=== PATIENT | female | born 1940 | race Caucasian/White ===

== ENCOUNTER 2016-05-16 09:12 | Inpatient (IN) | payer MEDICARE ==
--- NOTE | 2016-04-30 14:30 | NUR ---
JOINT CAMP: Patient attended Joint Camp at [facility] and patient is planning to come in for a procedure on 05/16/16. Patient has four stairs into the home and two stairs inside the home. Patient's DPOA Lilly Bocanegra [phone] and this is patient's daughter. She will be caring for patient post discharge and she will also be transporting. Patient has never been involved in Home Health services, SNF or outpatient physical therapy. At home patient has bath bench and walker, patient will need elevated toilet seat and bedside commode.
[2016-05-16] VITALS (15 sets, daily range): BP systolic 102–171; BP diastolic 64–95; PULSE 69–82; RESP 12–22; O2SAT 93–100
[~2016-05-16] VITALS: Ht 167.6 cm; Wt 66.8 kg
[2016-05-16] MEDS: Lactated Ringer's 1,000 ML IV SCH ×4 (05:00→17:05)
[~2016-05-16 09:12] MED LIST: Bupivacaine Liposome 1.3% 20 mL Inj INFILTRATE ONE; CYCL10TA9 PO; Clindamycin 900 mg/50 mL D5W IV ONE; DICL75TA6 PO; GABA-502 PO; HYDR-4003 PO; IBUP400T22 PO; MAGN400C PO; MULT-1018 PO; Vancomycin Inj 1,000 MG in IV Premix 1 EACH IV ONE
[2016-05-16] MEDS ORDERED: Lactated Ringer's 500 ML IV PRN (12:04)
[2016-05-16] MEDS ORDERED: Lactated Ringer's 1,000 ML IV SCH (12:04)
[2016-05-16] MEDS ORDERED: Ondansetron 2 mg/mL 2 mL Inj IVPUSH PRN (12:05)
[2016-05-16] MEDS ORDERED: Labetalol 5 mg/mL 4 mL Inj IV PRN (12:05)
[2016-05-16] MEDS ORDERED: EPHEDrine Sulfate 50 mg/mL Inj IVPUSH PRN (12:05)
[2016-05-16] MEDS ORDERED: Phenylephrine 10,000 mCg/mL Inj IVPUSH PRN (12:05)
[2016-05-16] MEDS ORDERED: Dexamethasone 4 mg/mL Inj IVPUSH PRN (12:05)
[2016-05-16] MEDS ORDERED: hydrALAZINE 20 mg/mL Inj IVPUSH PRN (12:05)
[2016-05-16] MEDS ORDERED: Atropine 0.4 mg/mL Inj IVPUSH PRN (12:05)
[2016-05-16] MEDS ORDERED: MetoCLOpramide 5 mg/mL 2 mL Inj IVPUSH PRN (12:05)
--- NOTE | 2016-05-16 12:16 | PCM.HPANE ---
Patient Data Date of Service: May 16, 2016 Surgeon Admitting Provider: Attending Provider:Luis Santoro MD Primary Care Physician:Eula Alva MD Other Provider:Reji Brush Anesthesia Reason for Visit Left Hip Arthritis Ht/WT & BMI Height (Feet): 5 Height (Inches): 6 Weight (Kilograms): 66.8 Body Mass Index 23.00 Allergies Coded Allergies: Penicillins (Verified Allergy, Severe, RASH, 05/15/16) Past Anesthesia History Anesthesia History: Denies:: Fam Anesthesia Reaction, Fam Malignant Hypertherm Diabetes History Hx Diabetes?: No MRSA MRSA: No Medications Hypertension Medication: No Home Meds Incl Beta Elsie: No Reported Medications Multivitamin (Multi Vitamin Daily)1 Each Tablet1 Each PO DAILY 30 Days Ref 0 05/15/16 Magnesium Oxide (Magnesium)400 Mg [id number] Mg PO DAILY 05/15/16 Ibuprofen 400 Mg [id number] Mg PO QID PRN For Pain Ref 0 05/15/16 Hydrocodone-Acetaminophen 5-325 mg 1 Each Tablet1 Tablet PO Q6H PRN For Pain Ref 0 05/15/16 Diclofenac ER 75 Mg Onflme01 Mg PO DAILY 05/15/16 Discontinued Reported Medications Gabapentin 300 Mg [id number] Mg PO HS Ref 0 05/15/16 Cyclobenzaprine 10 Mg [id number] Mg PO TID PRN Spasm 05/15/16 History History of ENT Problems?: No Hx of Heart Problems?: No Cardiovascular History: Denies:: Heart Murmur Hypertension Valvular Heart Disease Hx of Respiratory Problem?: No Respiratory History: Denies:: Use of C-PAP Machine Hx Neurologic Problems?: Yes Neurological History: Positive for:: Dizziness (HX OF BPPV-PARTIALLY RESOLVED W/ PT) Hx of GI Problems?: Yes Gastrointestinal History: Denies:: Diverticulitis (DIVERTICULOSIS) Hx of Problems?: No Female Hx: Denies:: Currently Skin History: Denies:: History Skin Disorders? Pressure Ulcers Hx Musculoskeletal Problems?: Yes Musculoskeletal History: Positive for:: Degenerative Joint Musculoskeletal Trauma (LT HIP=CURRENT PROBLEM) Hx of Psycho/Social Problems?: No Hx Surgeries?: No Hx Any Other Health Problems?: No Other History: Denies:: Cancer Endocrine Disease Hospitalization Thyroid Disease History Blood Transfusions: Denies:: Blood Transfusions Hx Diabetes: No Hx Alcohol Use: Yes (occassional)Hx Substance Use: NoHave You Smoked inLast 12 mo: No Stop/Bang S-Snoring: Do You Snore Loudly: No T-Tired: feel tired, fatigued: No O-Obsered: Observed not breath: No P-Blood Pressure: treated: No B- Body Mass Index > 35 kg/m2: No A- Age over 50: Yes N- Neck Large Circumference: No G- Gender Male: No ROSEMARY Total Score: 1 ROSEMARY Risk Assessment: Low Risk, <3 Yes Risk Assessment Category Category 1A: Patient has history of documented sleep apnea, and HAS NOT received any narcotic, sedative or anesthesia administration during this stay. Category 1B: Patient has history of documented sleep apnea, and HAS received any narcotic , sedative or anesthesia administration during this stay Category 2: Patient has SUSPECTED Obstructive Sleep Apnea, and HAS received any narcotic , sedative or anesthesia administration during this stay. Category 3: Patient has SUSPECTED Obstructive Sleep Apnea and HAS NOT received narcotic, sedative or anesthesia administration during this stay. Category 4: Outpatient in Procedural Areas with known sleep apnea or who screen positive for High Risk via the STOP/BANG questionnaire. Exam Exam Vital Signs Vital Signs Date Time Temp Pulse Resp B/P Pulse Ox O2 Delivery O2 Flow Rate FiO2 05/16/16 09:35 36.5 69 16 102/64 93 Room Air General Appearance: Alert, Oriented X3, Cooperative HEENT/AIRWAY: MP 2, Neck Movement (Full), Mouth Opening (Wide) Lungs: Clear to Auscultation, Normal Air Movement Heart: Regular Rate/Rhythm, Normal S1, Normal S2 Meds/Labs/Diagnostics Admission Meds Current Medications Lactated Ringer's 1,000 ml @ 120 mls/hr Q8H20M IV Last administered on 10:03; Start 05/16/16 at 05:00; Stop 05/16/16 at 13:19 Vancomycin/0.9 % Sod Chloride/ Premix (Vancomycin Inj/ IV Premix) 200 ml @ 133.333 mls/hr PREOP ONCE IV Last administered on 05/16/16 10:03; Start at 06:00; Stop 05/16/16 at 07:29; Status DC Plan Impression Patient chart reviewed, patient interviewed and anesthestic plan with risks, benefits, and alternatives discussed, and informed consent obtained. NPO Status: > midnight ASA Physical Status: ASA2 Mod Systemic Disease Anesthetic Plan: GA, SAB Bene/Risks/Altern/Consents: Yes HP Complete Prior to Induction: Yes Other risk vs benefit of SAB vs. GA discussed. Patient with extensive spinal surgeries for scoliosis, with 5 level lumbar fusion and previous márquez rods (since removed). 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 Given this history, we discussed proceeding with general anesthesia. Jace Garcia MD May 16, 2016 10:36
[2016-05-16] MEDS ORDERED: Bupivacaine Liposome 1.3% 20 mL Inj ONE (12:56)
[2016-05-16] MEDS ORDERED: Gentamicin 40 mg/mL 2 mL Inj IRRIGATION ONE (13:50)
[2016-05-16] MEDS ORDERED: Bupivacaine-MPF 0.5% W/EPI 30 mL Inj INFILTRATE ONE (13:50)
[2016-05-16] MEDS: HYDROmorphone 1 mg/mL Inj IVPUSH PRN ×3 (14:13→15:59)
[2016-05-16] MEDS ORDERED: Alum-Mag Hydrox-Simeth 30 mL Suspension PO PRN ×2 (15:25→17:05)
[2016-05-16] MEDS ORDERED: Polyethylene Glycol (PEG) 17 Gm Powder PO PRN (15:25)
--- NOTE | 2016-05-16 15:25 | PCM.ANEP1 ---
Post Anesthesia Phase 1 PACU Phase 1 Assessment Date of Service: May 16, 2016 Vital Signs Vital Signs Date Time Temp Pulse Resp B/P Pulse Ox O2 Delivery O2 Flow Rate FiO2 05/16/16 15:20 79 22 163/84 99 Simple Mask 8 05/16/16 15:15 81 12 164/85 100 Simple Mask 8 05/16/16 15:12 36.1 82 17 161/84 100 Simple Mask 8 05/16/16 09:35 36.5 69 16 102/64 93 Room Air Anesthetic Administered: GA Level of Alertness: Awake, talking BHATIA's with Equal Strength: Yes Pain: Yes Pain Scale Score: 5 Nausea or Vomiting: No Oxygen Delivery: Simple Mask Lungs: Normal Air Movement Summary Three episodes of self-limiting tachycardia, irregular, suggestive of intermittent a.fib. HR up to 140s. In PACU back to NSR. Hospitalist consulting, to be placed on telemetry. Jace Garcia MD May 16, 2016 15:25
[2016-05-16 15:32] LABS: APPEARANCE,URINE HAZY (CLEAR,HAZY); COLOR,URINE YELLOW (YELLOW); OCCULT BLOOD,URINE NEGATIVE (NEGATIVE); PH,URINE 5.5 (5.0-8.0); UROBILINOGEN,URINE NORMAL (NORMAL)
[2016-05-16] MEDS: fentaNYL-PF 50 mCg/mL 2 mL Inj IVPUSH PRN ×2 (15:37→15:49)
--- NOTE | 2016-05-16 15:42 | PCM.ANEP2 ---
Post Anesthesia Evaluation ASA/CMS Post Anesthesia Date of Service: May 16, 2016 VS in Patient's Normal Range?: Yes Resp Stable; Airway Patent?: Yes CV Function & Hydration Stable: Yes Mental Status Recovered?: Yes Pain control Satisfactory?: Yes N/V Control Satisfactory?: Yes Additional Comments In NSR. EKG NSR. Hospitalist consulting for rapid tachycardia Jace Garcia MD May 16, 2016 15:42
--- NOTE | 2016-05-16 15:52 | OP ---
[address] [address] OPERATIVE REPORT PATIENT: MAGO HUGGINS : 1940 MR#: [id number] ADMIT: 05/16/2016 JOB ID: [id number] DATE OF SURGERY: 05/16/2016 PREOPERATIVE DIAGNOSIS(ES): Severe arthritis, left hip. POSTOPERATIVE DIAGNOSIS(ES): Severe arthritis, left hip. PROCEDURE: Left total hip arthroplasty. SURGEON: Luis Santoro MD. SALES AND SERVICE ASSOCIATE: Carol Johnson PA-C. Slitter And Rewinder required due to the major complexity of the operation. INDICATIONS: This woman has had severe progressive osteoarthritic changes associated with her hip. Symptoms are uncontrolled by conservative treatment. She elects to proceed with a total hip replacement. She understands and accepts the potential for risks and complications, which include, but are not limited to, infection, thromboembolic or neurovascular events, as well as potential for implant failure. DESCRIPTION OF PROCEDURE: The patient was prepped and draped in the usual sterile fashion. A posterolateral approach was made. Dissection was carried down. The femoral hip external rotators were released. Capsule was T-tagged and released. The hip was dislocated. A standard femoral neck cut was made. The acetabulum was progressively reamed to a 53 size. A 54 outer bearing cup was placed. A trial liner was placed. A box osteotome was utilized on the femur, followed by a standard straight reamer. She had very thick cortical bone, and broaching was initiated with a 4 broach. It required further reaming to get in a 5 broach. The 5 broach was set to appropriate position but in order not to lengthen her it required the use of a -3 neck length. Excellent stability, however, and appropriate leg length were obtained with this. Wounds were irrigated with sterile irrigant. Final implant was applied. Repeat trial reductions confirmed similar positions as the trials. External rotators were repaired to the bone. Deep fascia was closed with #2 Quill, followed by 2-0 Vicryl, 3-0, and a 4-0 intracuticular stitch. Patient tolerated the procedure well. There were no complications.
--- NOTE | 2016-05-16 16:06 | DRSVH ---
PROCEDURE: X-RAY PELVIS ONE OR TWO VIEWS ([id number]) INDICATIONS: check alignment TECHNIQUE: 1 view of the lower pelvis acquired. COMPARISON: None. FINDINGS: Bones: Patient is status post left hip arthroplasty, with hardware components in expected positions. The hip joint appears congruent. The visualized bony structures appear intact. Mild right hip eric nt degeneration. Soft tissues: Overlying postoperative changes are noted. No suspicious soft tissue densities. IMPRESSION: Expected appearance and alignment status post left thoracoplasty. Dictated by: Marty MORAELS Interpreted: Anrdes Vázquez MD on 05/16/2016 at 16:05 Transcribed by: CHARLOTTE on 05/16/2016 at 16:06 Approved by: Andres Vázquez M.D. on 05/17/2016 at 13:26
[2016-05-16] MEDS ORDERED: hydrOXYzine Pamoate 25 mg Capsule ONE (16:08)
[2016-05-16] MEDS ORDERED: oxyCODONE-Acetamin 5-325 mg Tablet PO ONE (16:08)
[2016-05-16 16:12] LABS: BASOPHILS % (AUTO) 0.3 % (0-3); EOSINOPHILS % (AUTO) 1.4 % (0-5); MONOCYTES % (AUTO) 4.2 % (4-12); Mean Corpuscular Hemoglobin 33.2 pg (27.0-35.0); Mean Corpuscular Volume 98.4 fL (81-100); NEUTROPHILS % (AUTO) 78.7 % (40-74); Platelet Count 260 bil/L (150-400)
--- NOTE | 2016-05-16 16:16 | DRSVH ---
PROCEDURE: X-RAY CHEST ONE VIEW, PORTABLE ([id number]) INDICATIONS: Afib TECHNIQUE: One view of the chest was acquired. COMPARISON: [facility], CT, CT ABDOMEN PELVIS W CONTRAST, 04/29/2016, 10:41 AM. FINDINGS: Surgical changes and devices: Tendon anchors the interval the right shoulder. Lungs and pleura: No pleural effusions or pneumothorax. Lungs are clear. Hiatal hernia present. Mediastinum: Mediastinal contours appear normal. Heart size is normal. Bones and chest wall: No suspicious bony lesions. Overlying soft tissues appear unremarkable. S-sh aped scoliosis. IMPRESSION: No acute cardiopulmonary disease. Dictated by: Marty TOBAR Interpreted: Andres Vázquez MD on 05/16/2016 at 16:15 Transcribed by: CHARLOTTE on 05/16/2016 at 16:15 Approved by: Andres Vázquez M.D. on 05/17/2016 at 13:44
[2016-05-16 16:44] LABS: TROPONIN T < 0.010 ug/L (0.0-0.011)
[2016-05-16] MEDS ORDERED: Phenylephrine/NS-PF 100 mCg/mL 5 mL Syringe IVPUSH ONE (16:44)
[2016-05-16] MEDS ORDERED: fentaNYL-PF 50 mCg/mL 2 mL Inj ONE (16:44)
[2016-05-16] MEDS ORDERED: Propofol 10,000 mCg/mL 20 mL Inj ONE (16:44)
[2016-05-16] MEDS ORDERED: Dexamethasone 4 mg/mL Inj ONE (16:44)
[2016-05-16] MEDS ORDERED: Succinylcholine Chloride 20 mg/mL 5 mL Inj ONE (16:44)
[2016-05-16] MEDS ORDERED: Ondansetron 2 mg/mL 2 mL Inj ONE (16:44)
[2016-05-16] MEDS ORDERED: Lidocaine PF 1% 30 mL Inj ONE (16:44)
[2016-05-16] MEDS ORDERED: HYDROmorphone 2 mg/mL Inj ONE (16:44)
[2016-05-16] MEDS ORDERED: Magnesium Hydroxide 10 mL Oral Concentration PO PRN (17:05)
[2016-05-16] MEDS ORDERED: diphenhydrAMINE 25 mg Capsule PO PRN (17:05)
[2016-05-16] MEDS ORDERED: Ondansetron 2 mg/mL 2 mL Inj IV PRN (17:05)
[2016-05-16] MEDS ORDERED: Sodium Biphos-Phos 133 mL Enema RECTAL PRN (17:05)
[2016-05-16] MEDS ORDERED: Senna-Docusate 8.6-50 mg Tablet PO PRN (17:05)
[2016-05-16] MEDS ORDERED: Ondansetron 8 mg ODT Tablet PO PRN (17:05)
[2016-05-16] MEDS ORDERED: MetoCLOpramide 5 mg/mL 2 mL Inj IV PRN (17:05)
[2016-05-16] MEDS: hydrOXYzine Pamoate 25 mg Capsule PO PRN ×2 (17:18→21:41)
--- NOTE | 2016-05-16 17:36 | PCM.CHPMED ---
Subjective Date of Service: May 16, 2016 Provider requesting consult: Luis Santoro MD Primary Physician: Admitting Physician: Luis Santoro MD Primary Care Physician: Eula Alva MD Attending Physician: Luis Santoro MD Admit Status: Direct Admit Chief Complaint: Chief Complaint: Medicine consulted for an episode of intraoperative atrial fibrillation and postop follow-up History of Present Illness: Krysten is a pleasant 75-year-old lady with no significant past medical history except history of BPPV, hip osteoarthritis, history of scoliosis who was admitted for elective left hip replacement. Intraoperatively she had 2 episodes of atrial fibrillation with RVR rate 130s which lasted for about a minute each time. Procedure was otherwise uneventful. No significant blood loss. Patient denies any history of arrhythmia. Denies chest pain. Denies palpitation. Complains of pain at surgical site. Review of Systems: A comprehensive review of systems performed, pertinent positives and negatives included in history of present illness PMH Past Medical History History of BPPV, she was on meclizine when necessary. No recent attack, not currently taking medications History of scoliosis status post spine surgery History of ectopic Hx Any Other Health Problems?: NoHx Diabetes: No Surgical History Appendectomy Laparotomy for ectopic Spine surgery Home Medications Hydrocodone molexicam 1 tablet daily Allergies: Coded Allergies: Penicillins (Verified Allergy, Severe, RASH, 05/15/16) Family History Family History Reviewed and unremarkable Social History Hx Alcohol Use: Yes (occassional)Hx Substance Use: NoHx Tobacco Use: No ( never smoked) Smoking Status: Never Smoker Exam Vital Signs Vital Sign - Last Date Time Temp Pulse Resp B/P Pulse Ox O2 Delivery O2 Flow Rate FiO2 05/16/16 16:40 36.5 77 16 160/74 95 Room Air 05/16/16 15:25 8 General: Alert, Oriented X3, Cooperative, No Acute Distress Head: Normal Eyes: PERRLA Mouth: Mucous Membr Moist/[place] Neck: Supple Chest & Lungs: Clear to auscultation & percussion Cardiovascular: Regular Rate/Rhythm, Normal S1, Normal S2, No Murmurs/Rubs/ Gallops Abdomen: Non-tender, No hepatosplenomegaly Musculoskeletal: Other (left hip surgical site cleanly dressed ) Neurological: Grossly Neurologically Intact Lab and Diagnostics Result Diagram: 05/16/16 1555 05/16/16 1555 12-lead ECG NSR ,no st/t wave changes Additional Diagnostics: DATE OF SURGERY: 05/16/2016 PREOPERATIVE DIAGNOSIS(ES): Severe arthritis, left hip. POSTOPERATIVE DIAGNOSIS(ES): Severe arthritis, left hip. PROCEDURE: Left total hip arthroplasty. SURGEON: Luis Santoro MD. RN MATERNAL CHILD: Carol Johnson PA-C. Line Lead required due to the major complexity of the operation. INDICATIONS: This woman has had severe progressive osteoarthritic changes associated with her hip. Symptoms are uncontrolled by conservative treatment. She elects to proceed with a total hip replacement. She understands and accepts the potential for risks and complications, which include, but are not limited to, infection, thromboembolic or neurovascular events, as well as potential for implant failure. DESCRIPTION OF PROCEDURE: The patient was prepped and draped in the usual sterile fashion. A posterolateral approach was made. Dissection was carried down. The femoral hip external rotators were released. Capsule was T-tagged and released. The hip was dislocated. A standard femoral neck cut was made. The acetabulum was progressively reamed to a 53 size. A 54 outer bearing cup was placed. A trial liner was placed. A box osteotome was utilized on the femur, followed by a standard straight reamer. She had very thick cortical bone, and broaching was initiated with a 4 broach. It required further reaming to get in a 5 broach. The 5 broach was set to appropriate position but in order not to lengthen her it required the use of a -3 neck length. Excellent stability, however, and appropriate leg length were obtained with this. Wounds were irrigated with sterile irrigant. Final implant was applied. Repeat trial reductions confirmed similar positions as the trials. External rotators were repaired to the bone. Deep fascia was closed with #2 Quill, followed by 2-0 Vicryl, 3-0, and a 4-0 intracuticular stitch. Patient tolerated the procedure well. There were no complications. Luis Santoro MD 05/16/16 1530 Assessment & Plan Assessment Krysten is a pleasant 75-year-old lady with no significant past medical history except history of BPPV, hip osteoarthritis, history of scoliosis who was admitted for elective left hip replacement # Brief episodes of Afib ,acute,not present on admission,resolved -likely due to anaesthetic meds -troponin negative,electrolytes ok,TSH mildly elevated with normal FT4 -monitor telemetry overnight -she will be on anticoagulation for THR for 4 weeks which should suffice .PCP may consider holter monitor if any palpitation outpatient # Hypertension,acute,not poa -Patient denies any history of hypertension - Pain control and will reassess # Status post total hip replacement -Pain control with dilaudid -defer DVT prophylaxis to ortho #Subclinical hypothyroidism,poa -Recheck TFT in 6-8 weeks outpatient Full code,verified with patient Thank you for the consult, will follow along with you. Problems: Resuscitation Status: CPR: Attempt Resuscitation copies to: Eula Alva MD; Luis Santoro MD, Melaku MD May 16, 2016 17:36
[2016-05-16] MEDS: 0.9% Sodium Chloride 1,000 ML IV SCH (17:50)
--- NOTE | 2016-05-16 19:45 | NUR ---
Admit Pt admitted to unit at 1630 on bed from PACU. Pt having pain /. Medications given. PATIENT PARTNER and telemetry applied. Pt desating to mid 80's, so 2L NC put on. LR infusing in surgical tubing. IV intact and patent. Island dressing in place with ice. Foot is cool, but strong pedal pulse, good cap refill, pt can wiggle toes and denies any numbness, tingling, or burning. Pt having nausea, medications given and lights turned down. Nicole intact and draining pale urine. VSS, A&O x3, BHATIA.
[2016-05-16] MEDS: CeFAZolin Inj 2 GM in IV Premix 1 EACH IV SCH (20:59)
[2016-05-16] MEDS ORDERED: CALC-140 PO (21:12)
--- NOTE | 2016-05-16 21:25 | NUR ---
Admit nurse note Admission assessment completed. pt. c/o 3/10 L hip pain and slight nausea. Primary RN notified and states she will give pain meds. Pt. oriented to room, call martinez and fall precautions. Daughter to bring in advance directives. Med rec updated per pt. recall. Allergies verified and sticker placed on name band. Pt. states her 2 months ago so she has had some stress, but that she has a good support network with 2 sons close by and a daughter who is visiting. Report given to Jackie Sanches.
[2016-05-16] MEDS: oxyCODONE-Acetamin 5-325 mg Tablet PO PRN (21:43)
[2016-05-16] MEDS ORDERED: Vancomycin 1 Gm/200 mL NS Premix IV ONE (22:00)
[2016-05-16] MEDS: Sodium Chloride LOK Flush 10 mL Syringe IV SCH (23:32)
[2016-05-17 00:42] VITALS: BP 94/58; PULSE 75; RESP 16; O2SAT 97
[2016-05-17] MEDS: HYDROcodone-APAP 5-325 mg Tablet PO PRN ×3 (00:52→09:20)
--- NOTE | 2016-05-17 02:18 | NUR ---
Pain Patient describing pain as tolerable at beginning of shift. Ice pack in place to left hip surgical site. Throughout remainder of shift, thus far, rating pain as a 4/10. States its tolerable, but she knows that it's there. Education provided on pain management techniques and keeping on top of pain rather than playing catch up. Patient agreeable. Receiving Logan 5/325 one tab and Vistaril 25 mg PO with effective results. Currently resting with eyes closed. Addendum: 05/17/16 at 0623 by CLYDE KINSEY RN Patient apprehensive about removing Nicole this AM. Would feel more comfortable waiting until after working with PT and getting OOB first. Will pass info on to day shift RN.
[2016-05-17] MEDS: CeFAZolin Inj 2 GM in IV Premix 1 EACH IV SCH (04:44)
[2016-05-17 05:29] VITALS: BP 115/70; PULSE 70; RESP 16; O2SAT 99
[2016-05-17 05:31] LABS: BASOPHILS % (AUTO) 0.1 % (0-3); EOSINOPHILS % (AUTO) 0 % (0-5); MONOCYTES % (AUTO) 9.8 % (4-12); Mean Corpuscular Hemoglobin 32.7 pg (27.0-35.0); Mean Corpuscular Volume 98.1 fL (81-100); NEUTROPHILS % (AUTO) 80.4 % (40-74); Platelet Count 263 bil/L (150-400)
[2016-05-17] MEDS: hydrOXYzine Pamoate 25 mg Capsule PO PRN ×4 (05:42→22:35)
[2016-05-17 07:50] VITALS: PULSE 74
[2016-05-17] MEDS: Sodium Chloride LOK Flush 10 mL Syringe IV SCH ×3 (08:30→22:38)
--- NOTE | 2016-05-17 08:36 | PCM.PNORTH ---
Subjective Date of Service: May 17, 2016 Visit Information: Reason for Visit Left Hip Arthritis Surgery/Surgery Date L RAJIV 05/16/16 Post-Op Day # Date of Admission: May 16, 2016 at 16:43 Hospital Day # Subjective Found patient awake and alert and sitting up in bed. No complaints pain at this time. Discussed the usual course of her hospital stay and encouraged patient to participate with formal therapy for discharge to home on postop day 2 or 3. Patient does have a daughter who will be staying with her for approximately 2 weeks postop. She does live in a private home and has a total of 6 steps to reach her bedroom. For the house and to within the house to reach her bedroom. She does have a front-wheeled walker in place. Postop General: No Complaints, No Shortness of Breath, No Chest Pain Pain Management: PO Objective Exam Objective Orientation: Alert and oriented 3 and pleasant Dressing: Interoperative dressing is clean dry and intact. Wound: Wound is not observed today. Compartments: Calf and thigh are soft and nontender. Mobility/sensation: and sensation are intact at left lower extremity distally. Abduction wedge: None RANDY hose: None. These will be ordered today. Nicole: In place and working Wound VAC: None Drain: None Gait: No gait as of this time. Vital Signs and I/O Vital Sign - Last Date Time Temp Pulse Resp B/P Pulse Ox O2 Delivery O2 Flow Rate FiO2 05/17/16 05:29 37.0 70 16 115/70 99 Nasal Cannula 2.00 Intake and Output 05/16/16 05/16/16 05/17/16 Cumulative From/Thru 15:00 23:00 07:00 05/15/16 09:27 - 05/17/16 06:21 Intake Total 1470 ml 1346 ml 2816 ml Output Total 100 ml 175 ml 1475 ml 1750 ml Balance 1370 ml -175 ml -129 ml 1066 ml Intake Oral 600 ml 600 ml IV Total 1470 ml 746 ml 2216 ml Output Urine Total 175 ml 1475 ml 1650 ml Estimated Blood Loss 100 ml 100 ml # Bowel Movements 0 0 Lab & Micro Results Laboratory Tests Test 05/16/16 15:27 05/16/16 15:55 05/17/16 05:15 Urine Color Yellow (YELLOW) Urine Appearance Hazy (CLEAR,HAZY) Urine pH 5.5 (5.0-8.0) Urine Specific [place] 1.030 (1.003-1.035) Urine Protein Negativemg/dL (NEG,TRACE) Urine Glucose (UA) Negativemg/dL (NEGATIVE) Urine Ketones 15mg/dL (NEGATIVE) Urine Occult Blood Negative (NEGATIVE) Urine Nitrite Negative (NEGATIVE) Urine Bilirubin Negative (NEGATIVE) Urine Urobilinogen Normalmg/dL (NORMAL) Urine Leukocyte Esterase Negative (NEGATIVE) Urine RBC 0-2/hpf (0-2) Urine WBC 0-5/hpf (0-5) Urine Epithelial Cells Occasional/hpf (NONE-MOD) Urine Crystals None seen (NONE SEEN) Urine Bacteria Moderate/hpf (NONE-FEW) Urine Hyaline Casts None/lpf (NONE) Urine Granular Casts None seen (NONE SEEN) Urine Waxy Casts None seen (NONE SEEN) Urine Red Blood Cell Casts None seen (NONE SEEN) Urine White Blood Cell Casts None seen (NONE SEEN) Urine Mucus Present (None Seen) Urine Trichomonas None seen (NONE SEEN) Urine Yeast None (NONE SEEN) Urinalysis Comment None Urine Culture Reflexed Indicated White Blood Count 7.8th/mm3 (3.8-10.1) 9.5th/mm3 (3.8-10.1) Red Blood Count 3.83mil/mm3 (3.90-5.20) 3.61mil/mm3 (3.90-5.20) Hemoglobin 12.7g/dL (12.0-15.6) 11.8g/dL (12.0-15.6) Hematocrit 37.7% (35.0-46.0) 35.4% (35.0-46.0) Mean Corpuscular Volume 98.4fL (81-100) 98.1fL (81-100) Mean Corpuscular Hemoglobin 33.2pg (27.0-35.0) 32.7pg (27.0-35.0) Mean Corpuscular Hemoglobin Concent 33.7% (32.0-37.0) 33.3% (32.0-37.0) Red Cell Distribution Width 15.0% (12.3-15.4) 14.9% (12.3-15.4) Platelet Count 260bil/L (150-400) 263bil/L (150-400) Neutrophils (%) (Auto) 78.7% (40-74) 80.4% (40-74) Lymphocytes (%) (Auto) 15.1% (14-46) 9.6% (14-46) Monocytes (%) (Auto) 4.2% (4-12) 9.8% (4-12) Eosinophils (%) (Auto) 1.4% (0-5) 0% (0-5) Basophils (%) (Auto) 0.3% (0-3) 0.1% (0-3) Hold Blue Top Tube Received (Received) Sodium Level 140mEq/L (134-144) Potassium Level 4.5mEq/L (3.5-5.2) Chloride Level 100mEq/L (97-108) Carbon Dioxide Level 23mmol/L (18-29) Blood Urea Nitrogen 24mg/dL (8-27) Creatinine 0.68mg/dL (0.57-1.00) Estimat Glomerular Filtration Rate 121mL/min (>59) Glucose Level 131mg/dL (60-99) Calcium Level 8.9mg/dL (8.5-10.1) Magnesium Level 2.0mg/dL (1.6-2.6) Total Bilirubin 0.7mg/dL (0.0-1.2) Aspartate Amino Transf (AST/SGOT) 26U/L (0-50) Alanine Aminotransferase (ALT/SGPT) 17U/L (0-32) Alkaline Phosphatase 95U/L (25-165) Troponin T < 0.010ug/L (0.0-0.011) Pro-B-Type Natriuretic Peptide 164.1pg/mL (0-738) Total Protein 6.9g/dL (6.4-8.4) Albumin 4.1g/dL (3.4-5.0) Thyroid Stimulating Hormone (TSH) 5.450uIU/mL (0.450-4.500) Free Thyroxine 1.70ng/dL (0.82-1.77) Microbiology 05/16/16 Urine Culture, Received Pending Result Diagram: 05/17/16 0515 05/16/16 3449 General Appearance: Alert, Oriented X3, Cooperative, No Acute Distress Extremities: No Compartment Syndrom Noted, Thigh & Calf Soft/Nontender Postop Sensory Motor: Distal Motor Intact, Movement in Toes, Distal Sensation Intact Activity: Activity per PT, Ambulate with PT (weightbearing as tolerated on the left lower extremity with front wheeled walker.) Catheters: Urethral 2 Way Nicole Assessment & Plan Impression Patient is a pleasant and alert 75-year-old female whom has undergone a left total hip arthroplasty on 05/16/2016. She has arranged for help at home postoperatively and has had all her questions and concerns answered and discussed this morning. Her anticipated discharge will be to home on postop day 2 or 3. Problems: Plan Postop day # 1 from left total hip arthroplasty performed on 05/16/[address] Luis Santoro. Weight bearing status: Weightbearing as tolerated on the left lower extremity. Mobility aid: Front-wheeled walker Immobilization: None Precautions: Standard postoperative total hip precautions in place with no hip flexion past 90. No crossing of the legs and no hip active abduction. Physical therapy: Continue formal physical therapy for mobility, gait and safety. Pain control: Continue by mouth pain medication in the form of [place] 5 or Percocet 5 and Vistaril. DVT prophylaxis: Continue Lovenox 40 mg subcutaneous daily 10 days postop with transition to ASA 81 mg EC by mouth twice a day for an additional 4 weeks totaling 6 weeks DVT prophylaxis. Wound care: Keep wound clean and dry and covered until seen in office in 2 weeks. Infectious DZ: None Nicole: In place and working. Nicole will be discontinued today on postop day 1 after her first physical therapy session. Dressing: Interoperative dressing is clean dry and intact. This will be changed to postoperative dressing on postop day 2 Drain: None Abduction wedge: None RANDY hose: None. Bilateral thigh-high RANDY hose will be ordered this morning. Nursing communication: Please measure 4 and fit bilateral thigh-high RANDY hose today. Please discontinue Nicole catheter today after first PT session. 2-week follow-up: Follow-up in 2 weeks at [facility] orthopedic clinic on prearranged appointment with [facility] provider for wound check and suture removal . 6-week follow-up: Follow-up in 6 weeks at [facility] orthopedic clinic on prearranged appointment with Dr. Luis Santoro with AP pelvis and left cross table lateral hip x-ray on arrival Plan: Patient will likely remain in-house for 2-3 days while participating with formal physical therapy with anticipated discharge to home on postop day 2 or 3. Telemetry is anticipated to be discontinued today by hospitalist service if there are no further events of A. fib. Orthopedics thanks hospitalist service for their help in the medical management of this patient. Discharge instructions: Weightbearing as tolerated on the left lower extremity using front wheel walker. Patient may work on gentle hip range of motion. Patient should be up and about and balance rest with activity. Ice incision as needed for pain control and comfort. Patient should not drive while on narcotic pain medication. Anticipated formal physical therapy to begin at 6 weeks postop. Discharge plan: Anticipate discharge to home with daughter as caregiver on postop day 2 or 3. VTE Prophylaxis: Sub-Q Enoxaparin (Lovenox 40 mg subcutaneous daily 10 days postop with transition to ASA 81 mg twice a day 4 weeks postop for total of 6 weeks postoperative DVT prophylaxis.), SCDs (bilateral SCDs.), RANDY Hose ( bilateral thigh-high RANDY hose will be ordered today.) Resuscitation Status: CPR: Attempt Resuscitation Arnold Boyce PA-C May 17, 2016 07:27
[2016-05-17 09:35] VITALS: BP 110/60; PULSE 73; RESP 16; O2SAT 96
[2016-05-17] MEDS: Lactated Ringer's 1,000 ML IV SCH (09:45)
[2016-05-17] MEDS: oxyCODONE-Acetamin 5-325 mg Tablet PO PRN ×5 (10:17→22:35)
[2016-05-17] MEDS: 0.9% Sodium Chloride 1,000 ML IV SCH (11:21)
--- NOTE | 2016-05-17 14:28 | NUR ---
ACTIVITY/PAIN Medicated with 1 tab norco and 1 tab vistaril prior to first therapy session in am. Stated medication was not effective after therapy, stating pain was an 8/10. Administered 1 tab of percocet which helped bring down pain to 6/10. Nicole catheter was removed after PT session, patient was able to void about 2 hrs later without difficulty. 1 person ext assistance with [facility] to transfer to [facility].
--- NOTE | 2016-05-17 15:12 | DRSVH ---
[facility] [address] [place] [address] Echocardiogram Report Name: MAGO HUGGINS Date: Height: 6 6 in Hospital Exam Location: [facility] Weight: 1 47 lb Gender: Female BSA: 1.8 m2 : 1940 Age: 75 yrs BP: 110/6 0 mmHg Reason For Study: A-FIB. Ordering Physician: HOSPITALIST [facility] Performed By: Amanda Ca Referring Physician: DR. ALEXANDER HALL Interpretation Summary The left ventricle is normal in size. The ejection fraction is estimated to be 60-65%. The right ventricle is normal in size and function. In mostly apical views, there appears to be slight external compression of lateral wall of left atrium by descending thoracic aorta. Descending thoracic aorta, visually does nort appear to be significantly dilated in those views. There is mild tricuspid regurgitation. The right ventricular systolic pressure is estimated at 35 mmHg assuming a right atrial pressure of 3 mm Hg. Procedure: A two-dimensional transthoracic echocardiogram with color flow and Doppler was performed. The study quality was technically adequate. There is no prior echocardiogram noted for this patient. The patient was in normal sinus rhythm during the exam. Left Ventricle: The left ventricle is normal in size. There is normal left ventricular wall thickness. There is no thrombus. The ejection fraction is estimated to be 60-65%. Septal motion is consistent with conduction abnormality. Spectral Doppler of the mitral valve is reversed, with an E/A wave ratio < 1.0. Right Ventricle: The right ventricle is normal in size and function. Atria: The left atrium is mildly dilated. In mostly apical views, there appears to be slight external compression of lateral wall of left atrium by descending thoracic aorta. Descending thoracic aorta, visually does nort appear to be significantly dilated in those views. The right atrium is normal in size. There is no Doppler evidence for an atrial septal defect. Mitral Valve: The mitral valve leaflets are slightly calcified. There is trace mitral regurgitation. Aortic Valve: The aortic valve is trileaflet. There is mild aortic valve sclerosis. The aortic valve opens well. There is discrete nodular thickening of the non- coronary cusp. No aortic regurgitation is present. Tricuspid Valve: The tricuspid valve leaflets are thin and pliable. There is mild tricuspid regurgitation. The right ventricular systolic pressure is estimated at 35 mmHg assuming a right atrial pressure of 3 mm Hg. Pulmonic Valve: The pulmonic valve is not well visualized. Great Vessels: The aortic root is normal size. The ascending aorta could not be visualized. The pulmonary is not well visualized. The IVC is of normal diameter and collapses greater than 50% with a sniff. This suggests a low right atrial pressure of 3 mm Hg. Pericardium/ Pleura There is no pericardial effusion. There is an anterior echo-free space consistent with a fat pad. There is no pleural effusion. MMode/2D Measurements & Calculations LVIDd: 4.7 cm LA dimension: 3.0 cm RA long axis LVOT diam: 2.2 cm LVIDs: 3.4 cm AoV Opening FS: 27.7 % LA A2 area: 22.9 cm RA area IVSd: 0.92 cm LA A4 area: 18.4 cm Ao root diam LVPWd: 0.99 cm LA length (vol) : 14.3 cm RA vol Ao Arch Diam (Prox LA vol: 62.3 ml : 32.4 ml Trans): 2.9 cm LA vol index RA : 18.4 mm/ RVDd major IVC diam: 2.0 cm : 6.7 cm LV hamilton. diameter/BSA LV sys. diameter/BSA RVD2 (mid) (cm/m^2): 2.7 (cm/m^2): 1.9 : 2.9 cm Doppler Measurements & Calculations Ao V2 max MV E max juvencio MV E/A: 1.0 TR max juvencio : 174.2 cm/sec : 80.3 cm/sec Med Peak E' Juvencio : 284.0 cm/sec Ao max PG MV A max juvencio TR max PG : 12.1 mmHg : 80.3 cm/sec E/E' med: 9.4 : 32.3 mmHg Ao mean PG MV P1/2t: 64.8 msec Lat Peak E' Juvencio PA V2 max : 101.0 cm/sec LVOT Max Juvencio E/E' lat: 5.8 PA mean PG : 127.1 cm/sec E/e' average: 7.6 YESICA(I,D): 2.8 cm Pulm A Revs Dur PA Accel Time sev ratio : 0.08 sec MV A dur: 0.12 sec MV dec time MV P1/2t max juvencio Ao V2 mean LV V1 max PG : 0.22 sec : 123.5 cm/sec Ao V2 VTI: 32.2 cm LV V1 VTI MVA(P1/2t): 3.4 cm2 : 23.9 cm YESICA(V,D): 2.8 cm2 PA V2 mean YESICA indexed to BSA Pulm A Revs Dur - MV A : 74.1 cm/sec (cm^2/m^2): 1.6 Dur: -0.00 msec Reading Physician:DIMITRIOS
--- NOTE | 2016-05-17 15:27 | NUR ---
Social Work: Initial Assessment D: Per EMR review, pt is a 75 year old female admitted for Left Hip Arthritis. Pt is [employer] with no LTC or VA benefits. PCP is Eula Alva MD. NOK is Lilly Bocanegra, dtr, . Advanced directives completed and placed on pt's hard chart by CHINESE INSTRUCTOR. Readmit score is moderate, 3/8. CHINESE INSTRUCTOR met with pt and family at bedside. Sw role explained. See initial assessment. Pt lives in [place], alone. Prior to admission pt was I with all ADLs. Pt and daughter confirm that her daughter will be staying with her for several weeks during recovery. Pt was curious about home health. CHINESE INSTRUCTOR and Physical Therapist both reviewed PT options and informed her that if she is able to tolerate going to outpatient PT that it would be best for her recovery. HH Choice List provided in case pt is not able to progress towards outpatient PT. Pt has no preference for [facility] as she has never had HH in the past. Pt has never had any skilled rehab placements. A: Pt who was previously I P: Anticipate pt to likely discharge home with outpatient PT and assistance from her daughter. CHINESE INSTRUCTOR to rule out possible home health. CHYNA Garcia Addendum: 05/17/16 at 1538 by YO KHALIL SS Amended: Links added.
[2016-05-17 16:24] VITALS: BP 102/65; PULSE 82; RESP 16; O2SAT 97
--- NOTE | 2016-05-17 17:04 | NUR ---
spiritual care: pt request brief conversational visit. pt reflected on her surgery and anticipated recovery. many family visiting
[2016-05-17 19:57] VITALS: BP 103/61; PULSE 89; RESP 18; O2SAT 95
--- NOTE | 2016-05-17 23:41 | PCM.PNMED ---
Subjective Date of Service May 17, 2016 Subjective Patient has no new complaints other than postoperative pain in her left hip. Exam Vital Signs Vital Sign - Last Date Time Temp Pulse Resp B/P Pulse Ox O2 Delivery O2 Flow Rate FiO2 05/17/16 19:57 37.0 89 18 103/61 95 Room Air 05/17/16 05:29 2.00 Intake and Output 05/16/16 05/16/16 05/17/16 Cumulative From/Thru 15:00 23:00 07:00 05/15/16 09:27 - 05/17/16 06:21 Intake Total 1470 ml 1346 ml 2816 ml Output Total 100 ml 175 ml 1475 ml 1750 ml Balance 1370 ml -175 ml -129 ml 1066 ml Intake Oral 600 ml 600 ml IV Total 1470 ml 746 ml 2216 ml Output Urine Total 175 ml 1475 ml 1650 ml Estimated Blood Loss 100 ml 100 ml # Bowel Movements 0 0 Exam General: Patient is in no apparent distress postoperatively. HEENT: Head is atraumatic and normocephalic. Eyes: Pupils are equally round and reactive to light and accommodation. Extraocular muscles are intact. Sclera are white, anicteric. Subconjunctival mucosa is pink. Ears and nose are unremarkable. Oropharynx: There is no mucosal lesions, there is no thrush, there is no pharyngitis. Neck: Is supple, there are no nodes, or masses or tenderness. Chest: Is clear to auscultation and percussion. There are no rales, rhonchi, wheezes or rubs. Heart: Rate, rhythm is regular. There is a slight grade 1/6 systolic ejection murmur heard best at the left sternal border. There is no rub or gallop. Abdomen: Good bowel sounds are present. Abdomen is soft, nontender, no organomegaly or masses were appreciated. Extremities: Are symmetrical and well perfused. There is no edema, there is no cellulitis, no rash. The post-op dressing on the left hip is clean dry and intact. Neurologic: There are no focal neurological deficits. Cranial nerves II through XII are intact. There are no sensory or motor deficits. Psychiatric: Patients mood is calm and shows no sign of agitation. Genital: Deferred Rectal: Deferred Lab and Diagnostics Result Diagram: 05/17/16 0515 05/16/16 5545 Microbiology Name: MAGO HUGGINS Age/Sex: 75/F Attend Dr: Luis Santoro Acct: [id number] Unit: [id number] Status: ADM IN Location: [facility] 1031-1 Re05/16/16 Disch: Specimen: [id number] Collected: 05/16/16 Status: RES Req#: [id number] Received: 05/16/16 Source: URINE CC Sp Desc : TONY Brown Dr: Luis Santoro MD Ordered: URINE CULT Procedure Result Verified Site Microbiology MARINE CULT URINE Preliminary 05/17/1645 No growth to date X-Rays, CTs and MRIs PROCEDURE: X-RAY PELVIS ONE OR TWO VIEWS ([id number]) INDICATIONS: check alignment TECHNIQUE: 1 view of the lower pelvis acquired. COMPARISON: None. FINDINGS: Bones: Patient is status post left hip arthroplasty, with hardware components in expected positions. The hip joint appears congruent. The visualized bony structures appear intact. Mild right hip joint degeneration. Soft tissues: Overlying postoperative changes are noted. No suspicious soft tissue densities. IMPRESSION: Expected appearance and alignment status post left thoracoplasty. Dictated by: Marty TOBAR Interpreted: Andres Vázquez MD on 05/16/2016 at 16: 05 Transcribed by: CHARLOTTE on 05/16/2016 at 16:06 Approved by: Andres Vázquez M.D. on 05/17/2016 at 13:26 PROCEDURE: X-RAY CHEST ONE VIEW, PORTABLE ([id number]) INDICATIONS: Afib TECHNIQUE: One view of the chest was acquired. COMPARISON: [facility], CT, CT ABDOMEN PELVIS W CONTRAST, 2016, 10:41 AM. FINDINGS: Surgical changes and devices: Tendon anchors the interval the right shoulder. Lungs and pleura: No pleural effusions or pneumothorax. Lungs are clear. Hiatal hernia present. Mediastinum: Mediastinal contours appear normal. Heart size is normal. Bones and chest wall: No suspicious bony lesions. Overlying soft tissues appear unremarkable. S-shaped scoliosis. IMPRESSION: No acute cardiopulmonary disease. Dictated by: Marty TOBAR Interpreted: Andres Vázquez MD on 05/16/2016 at 16: 15 Transcribed by: CHARLOTTE on 05/16/2016 at 16:15 Approved by: Andres Vázquez M.D. on 05/17/2016 at 13:44 Cardiac Echo Impressions Echocardiogram Report Name: MAGO HUGGINS Alissa Date: Height: 6 6 in Hospital Exam Location: [facility] Weight: 1 47 lb Gender: Female BSA: 1.8 m2 : 1940 Age: 75 yrs BP: 110/6 0 mmHg Reason For Study: A-FIB. Ordering Physician: HOSPITALIST [facility] Performed By: Amanda Ca Referring Physician: DR. ALEXANDER HALL Interpretation Summary The left ventricle is normal in size. The ejection fraction is estimated to be 60-65%. The right ventricle is normal in size and function. In mostly apical views, there appears to be slight external compression of lateral wall of left atrium by descending thoracic aorta. Descending thoracic aorta, visually does nort appear to be significantly dilated in those views. There is mild tricuspid regurgitation. The right ventricular systolic pressure is estimated at 35 mmHg assuming a right atrial pressure of 3 mm Hg. Assessment & Plan Mago is a pleasant 75-year-old lady with no significant past medical history except history of BPPV, hip osteoarthritis, history of scoliosis who was admitted for elective left hip replacement. # Brief episodes of Afib ,acute,not present on admission,resolved -This is likely due to anaesthetic meds -The troponin negative,electrolytes ok,TSH mildly elevated with normal FT4 -Continue to monitor with telemetry. -The patient will be on anticoagulation for THR for 4 weeks. -Due to echocardiogram findings and atrial fibrillation recommend follow-up with cardiology as an outpatient. # Hypertension,acute,not poa -Patient denies any history of hypertension - Pain control will likely resolve the issue of hypertension. However, will reassess if blood pressure remains elevated. # Status post total hip replacement postoperative day #1 -Pain control . Orthopedic surgery -We will defer DVT prophylaxis to ortho #Subclinical hypothyroidism,poa -Recheck TFT in 6-8 weeks as an outpatient Disposition: Will depend on patient's recovery from surgery. Physical therapy has not even started. I have discussed case with patient several family members at bedside at length with the patient. They agree with the above plan. Pain Evaluation: Adequate Pain Control GI Prophylaxis: Proton Pump Inhibitor VTE Prophylaxis: Sub-Q Enoxaparin (Lovenox 40 mg subcutaneous daily 10 days postop with transition to ASA 81 mg twice a day 4 weeks postop for total of 6 weeks postoperative DVT prophylaxis.), SCDs (bilateral SCDs.), RANDY Hose ( bilateral thigh-high RANDY hose will be ordered today.) VTE Mechanical Devices: Intermittant Pneumatic CD, Anti-Embolic stockings Resuscitation Status: CPR: Attempt Resuscitation Betsy LayneEric MD May 17, 2016 23:41
[2016-05-18 01:08] VITALS: BP 104/63; PULSE 76; RESP 16; O2SAT 93
[2016-05-18] MEDS: oxyCODONE-Acetamin 5-325 mg Tablet PO PRN ×5 (01:28→22:43)
[2016-05-18] MEDS: hydrOXYzine Pamoate 25 mg Capsule PO PRN (01:28)
[2016-05-18] MEDS: Lactated Ringer's 1,000 ML IV SCH ×2 (02:02→16:48)
--- NOTE | 2016-05-18 04:51 | NUR ---
Pain Pt. reports pain 3/10 for hip. However, recently pt. has reported 9/10 pain in her back. Position change was offered to pt., pt. was turned to side. 1 Percocet and Vistaril ineffective for back pain. 1 Roxycodone given. Pt. is now sleeping. Will continue to monitor.
[2016-05-18 05:10] VITALS: PULSE 90
[2016-05-18 06:06] VITALS: BP 107/62; PULSE 76; RESP 18; O2SAT 94
[2016-05-18] MEDS: 0.9% Sodium Chloride 1,000 ML IV SCH (07:21)
[2016-05-18 08:39] VITALS: PULSE 80
[2016-05-18] MEDS: Pantoprazole 40 mg ER24 Tablet PO SCH (08:53)
[2016-05-18] MEDS: Sodium Chloride LOK Flush 10 mL Syringe IV SCH ×2 (08:54→16:48)
[2016-05-18 09:59] LABS: BASOPHILS % (AUTO) 0.2 % (0-3); EOSINOPHILS % (AUTO) 0.2 % (0-5); MONOCYTES % (AUTO) 11.6 % (4-12); Mean Corpuscular Hemoglobin 33.1 pg (27.0-35.0); Mean Corpuscular Volume 99.1 fL (81-100); NEUTROPHILS % (AUTO) 76.7 % (40-74); Platelet Count 268 bil/L (150-400)
--- NOTE | 2016-05-18 11:11 | PCM.PNORTH ---
Subjective Date of Service: May 18, 2016 Visit Information: Reason for Visit Left Hip Arthritis Surgery/Surgery Date L RAJIV 05/16/16 Post-Op Day # 2 Date of Admission: May 16, 2016 at 16:43 Hospital Day # Subjective Patient states she is having very little pain in her hip, she states the biggest complaint is her mid back. She states she has had great relief with a heating pad on her back. Patient's only concern is that she has substituted her home and she is not certain if she will be able to do them. Daughter is with her at this time and states she is here from [place] and will be staying while her mother recovers from surgery. Postop General: No Complaints, No Shortness of Breath, No Chest Pain, Good Appetite Pain Management: PO Objective Exam Objective Patient laying in bed Vital Signs and I/O Vital Sign - Last Date Time Temp Pulse Resp B/P Pulse Ox O2 Delivery O2 Flow Rate FiO2 05/18/16 08:39 80 05/18/16 06:06 36.7 18 107/62 94 Room Air 05/17/16 05:29 2.00 Intake and Output 05/17/16 05/17/16 05/18/16 Cumulative From/Thru 15:00 23:00 07:00 05/15/16 09:27 - 05/18/16 05:50 Intake Total 1908 ml 400 ml 5124 ml Output Total 700 ml 550 ml 3000 ml Balance 1208 ml -150 ml 2124 ml Intake Oral 1520 ml 400 ml 2520 ml IV Total 388 ml 2604 ml Output Urine Total 700 ml 550 ml 2900 ml Estimated Blood Loss 100 ml # Voids 3 3 # Bowel Movements 0 Lab & Micro Results Laboratory Tests Test 05/18/16 09:45 White Blood Count 8.8th/mm3 (3.8-10.1) Red Blood Count 3.44mil/mm3 (3.90-5.20) Hemoglobin 11.4g/dL (12.0-15.6) Hematocrit 34.1% (35.0-46.0) Mean Corpuscular Volume 99.1fL (81-100) Mean Corpuscular Hemoglobin 33.1pg (27.0-35.0) Mean Corpuscular Hemoglobin Concent 33.4% (32.0-37.0) Red Cell Distribution Width 14.9% (12.3-15.4) Platelet Count 268bil/L (150-400) Neutrophils (%) (Auto) 76.7% (40-74) Lymphocytes (%) (Auto) 11.1% (14-46) Monocytes (%) (Auto) 11.6% (4-12) Eosinophils (%) (Auto) 0.2% (0-5) Basophils (%) (Auto) 0.2% (0-3) Sodium Level 136mEq/L (134-144) Potassium Level 3.7mEq/L (3.5-5.2) Chloride Level 98mEq/L (97-108) Carbon Dioxide Level 27mmol/L (18-29) Blood Urea Nitrogen 14mg/dL (8-27) Creatinine 0.46mg/dL (0.57-1.00) Estimat Glomerular Filtration Rate 189mL/min (>59) Glucose Level 120mg/dL (60-99) Calcium Level 8.4mg/dL (8.5-10.1) Magnesium Level 2.0mg/dL (1.6-2.6) Total Bilirubin 0.8mg/dL (0.0-1.2) Aspartate Amino Transf (AST/SGOT) 29U/L (0-50) Alanine Aminotransferase (ALT/SGPT) 13U/L (0-32) Alkaline Phosphatase 77U/L (25-165) Total Protein 5.9g/dL (6.4-8.4) Albumin 3.6g/dL (3.4-5.0) Microbiology 05/16/16 Urine Culture - Final, Complete No growth (<1,000 organisms/mL) Result Diagram: 05/18/16 0945 05/18/16 0945 General Appearance: Alert, Oriented X3, Cooperative, No Acute Distress Extremities: Distal Pulses Palpable, No Compartment Syndrom Noted, Thigh & Calf Soft/Nontender Postop Sensory Motor: Distal Motor Intact, Movement in Toes, Distal Sensation Intact, NVI Distally SURGICAL WOUND : Wound Location/Description Perioperative dressings are clean, dry and intact. Incision General Appearance: No Direct Observation Activity: Activity per PT, Ambulate with PT (weightbearing as tolerated on the left lower extremity with front wheeled walker.) Assessment & Plan Impression Postoperative day #2 left total hip arthroplasty Problems: Plan Weightbearing: Weightbearing as tolerated with wheeled walker DVT prophylaxis: Aspirin 81 mg twice a day 6 weeks Physical therapy for transfers, progressive ambulation, strengthening Wound care: Perioperative dressing will be changed to an island dressing today. Analgesia: Continue oral pain management.h Discharge plan: Discharge home tomorrow. Start outpatient physical therapy next week. Follow-up plan: In 2 weeks at [facility] with MAKEDA for wound check and at [address] Santoro with x-rays VTE Prophylaxis: Sub-Q Enoxaparin (Lovenox 40 mg subcutaneous daily 10 days postop with transition to ASA 81 mg twice a day 4 weeks postop for total of 6 weeks postoperative DVT prophylaxis.), SCDs (bilateral SCDs.), RANDY Hose ( bilateral thigh-high RANDY hose will be ordered today.) Resuscitation Status: CPR: Attempt Resuscitation Carol Johnson PA-C May 18, 2016 11:11
--- NOTE | 2016-05-18 15:26 | NUR ---
[facility] signed CHYNA Owens
[2016-05-18 15:29] VITALS: BP 95/58; PULSE 82; RESP 19; O2SAT 96
--- NOTE | 2016-05-18 17:23 | NUR ---
back pain patient has been complaining of mid-back pain. patient stated that she had something similar after the last time she had surgery. reports mid-back pain at worse 6/10. now about 3-4/10. K-pad was ordered and has been helping, per patient report. "it's been a lot more comfortable". left hip pain has been tolerable rating 2-4/10 throughout the day. continue to encourage DB&C, hip precautions, and increased mobility. continue with current plan of care.
--- NOTE | 2016-05-18 20:40 | PCM.PNMED ---
Subjective Date of Service May 18, 2016 Subjective Patient is beginning to feel better. She was able to walk with physical therapy today for brief period of time. Patient has less pain in her left hip. She still complains of considerable amount of postoperative pain but is more bearable and more manageable. Patient has good appetite. She has no palpitations. She has no other new complaints. Exam Vital Signs Vital Sign - Last Date Time Temp Pulse Resp B/P Pulse Ox O2 Delivery O2 Flow Rate FiO2 05/18/16 15:29 82 19 95/58 96 Room Air 05/18/16 06:06 36.7 05/17/16 05:29 2.00 Intake and Output 05/17/16 05/17/16 05/18/16 Cumulative From/Thru 15:00 23:00 07:00 05/15/16 09:27 - 05/18/16 05:50 Intake Total 1908 ml 400 ml 5124 ml Output Total 700 ml 550 ml 3000 ml Balance 1208 ml -150 ml 2124 ml Intake Oral 1520 ml 400 ml 2520 ml IV Total 388 ml 2604 ml Output Urine Total 700 ml 550 ml 2900 ml Estimated Blood Loss 100 ml # Voids 3 3 # Bowel Movements 0 Exam General: Patient is in no apparent distress postoperatively. She appears comfortable lying supine in bed. HEENT: Head is atraumatic and normocephalic. Eyes: Pupils are equally round and reactive to light and accommodation. Extraocular muscles are intact. Sclera are white, anicteric. Subconjunctival mucosa is pink. Ears and nose are unremarkable. Oropharynx: There is no mucosal lesions, there is no thrush, there is no pharyngitis. Neck: Is supple, there are no nodes, or masses or tenderness. Chest: Is clear to auscultation and percussion. There are no rales, rhonchi, wheezes or rubs. Heart: Rate, rhythm is regular. There is a slight grade 1/6 systolic ejection murmur heard best at the left sternal border. There is no rub or gallop. Abdomen: Good bowel sounds are present. Abdomen is soft, nontender, no organomegaly or masses were appreciated. Extremities: Are symmetrical and well perfused. There is no edema, there is no cellulitis, no rash. The post-op dressing on the left hip is clean dry and intact. Neurologic: There are no focal neurological deficits. Cranial nerves II through XII are intact. There are no sensory or motor deficits. Psychiatric: Patients mood is calm and shows no sign of agitation. Genital: Nicole catheter has been removed. Remainder of the pelvic exam is deferred. Rectal: Deferred Lab and Diagnostics Result Diagram: 05/18/1694405/18/16944 Microbiology Name: BHAVNAMAGO A Age/Sex: 75/F Attend Dr: Luis Santoro Acct: [id number] Unit: [id number] Status: ADM IN Location: [facility] 1031-1 Re05/16/16 Disch: Specimen: [id number] Collected: 05/16/16 Status: RES Req#: [id number] Received: 05/16/16 Source: URINE CC Sp Desc : PP Subm Dr: Luis Santoro MD Ordered: URINE CULT Procedure Result Verified Site Microbiology MARINE CULT URINE Preliminary 05/17/16-944 No growth to date X-Rays, CTs and MRIs PROCEDURE: X-RAY PELVIS ONE OR TWO VIEWS ([id number]) INDICATIONS: check alignment TECHNIQUE: 1 view of the lower pelvis acquired. COMPARISON: None. FINDINGS: Bones: Patient is status post left hip arthroplasty, with hardware components in expected positions. The hip joint appears congruent. The visualized bony structures appear intact. Mild right hip joint degeneration. Soft tissues: Overlying postoperative changes are noted. No suspicious soft tissue densities. IMPRESSION: Expected appearance and alignment status post left thoracoplasty. Dictated by: Marty TOBAR Interpreted: Andres Vázquez MD on 05/16/2016 at 16: 05 Transcribed by: CHARLOTTE on 05/16/2016 at 16:06 Approved by: Andres Vázquez M.D. on 05/17/2016 at 13:26 PROCEDURE: X-RAY CHEST ONE VIEW, PORTABLE ([id number]) INDICATIONS: Afib TECHNIQUE: One view of the chest was acquired. COMPARISON: [facility], CT, CT ABDOMEN PELVIS W CONTRAST, 2016, 10:41 AM. FINDINGS: Surgical changes and devices: Tendon anchors the interval the right shoulder. Lungs and pleura: No pleural effusions or pneumothorax. Lungs are clear. Hiatal hernia present. Mediastinum: Mediastinal contours appear normal. Heart size is normal. Bones and chest wall: No suspicious bony lesions. Overlying soft tissues appear unremarkable. S-shaped scoliosis. IMPRESSION: No acute cardiopulmonary disease. Dictated by: Marty Choffel RRA Interpreted: Andres Vázquez MD on 05/16/2016 at 16: 15 Transcribed by: CHARLOTTE on 05/16/2016 at 16:15 Approved by: Andres Vázquez M.D. on 05/17/2016 at 13:44 Cardiac Echo Impressions Echocardiogram Report Name: MAGO HUGGINS AStudbandar Date: Height: 6 6 in Hospital Exam Location: [facility] Weight: 1 47 lb Gender: Female BSA: 1.8 m2 : 1940 Age: 75 yrs BP: 110/6 0 mmHg Reason For Study: A-FIB. Ordering Physician: HOSPITALIST [facility] Performed By: Amanda Ca Referring Physician: DR. ALEXANDER HALL Interpretation Summary The left ventricle is normal in size. The ejection fraction is estimated to be 60-65%. The right ventricle is normal in size and function. In mostly apical views, there appears to be slight external compression of lateral wall of left atrium by descending thoracic aorta. Descending thoracic aorta, visually does nort appear to be significantly dilated in those views. There is mild tricuspid regurgitation. The right ventricular systolic pressure is estimated at 35 mmHg assuming a right atrial pressure of 3 mm Hg. Assessment & Plan Mago is a pleasant 75-year-old lady with no significant past medical history except history of benign paroxysmal positional vertigo, hip osteoarthritis, history of scoliosis who was admitted for elective left hip replacement. # Brief episodes of Afib ,acute,not present on admission,resolved -This may be due to anaesthetic meds or IV fluids during surgery -The troponin negative,electrolytes ok,TSH mildly elevated with normal FT4 -Continue to monitor with telemetry. -The patient will be on anticoagulation for THR for 4 weeks. -Due to echocardiogram findings and atrial fibrillation recommend follow-up with cardiology as an outpatient. # Hypertension,acute,not present on admission -Patient denies any history of hypertension - Pain control will likely resolve the issue of hypertension. However, will reassess if blood pressure remains elevated. # Status post total hip replacement postoperative day #2 -Pain control . per Orthopedic surgery -We will defer DVT prophylaxis to Orthopedic injury #Subclinical hypothyroidism,poa -Recheck TFT in 6-8 weeks as an outpatient Disposition: Will depend on patient's recovery from surgery. Physical therapy is currently working with the patient. I have discussed case with the patient's daughter Lilly at bedside. Lilly is here from [place] to stay with her mother while she recovers from surgery. Dr. Junior Walters will follow in a.m. Pain Evaluation: Adequate Pain Control GI Prophylaxis: Proton Pump Inhibitor VTE Prophylaxis: Sub-Q Enoxaparin (Lovenox 40 mg subcutaneous daily 10 days postop with transition to ASA 81 mg twice a day 4 weeks postop for total of 6 weeks postoperative DVT prophylaxis.), SCDs (bilateral SCDs.), RANDY Hose ( bilateral thigh-high RANDY hose will be ordered today.) VTE Mechanical Devices: Intermittant Pneumatic CD Resuscitation Status: CPR: Attempt Resuscitation Katie,Eric Van MD May 18, 2016 20:40
[2016-05-18 20:42] VITALS: BP 90/51; PULSE 68; RESP 18; O2SAT 95
[2016-05-19 00:24] VITALS: BP 97/59; PULSE 83; RESP 20; O2SAT 90
[2016-05-19] MEDS: oxyCODONE-Acetamin 5-325 mg Tablet PO PRN ×4 (00:31→13:06)
[2016-05-19] MEDS: Sodium Chloride LOK Flush 10 mL Syringe IV SCH ×2 (00:33→09:29)
--- NOTE | 2016-05-19 01:02 | NUR ---
PAIN; pt repositioned frequently this shift for comfort. One percocet not very effective for "burning" sensation in back. Using kpad. Second percocet given. Ortho checks wnl.
[2016-05-19] MEDS: hydrOXYzine Pamoate 25 mg Capsule PO PRN (01:46)
--- NOTE | 2016-05-19 02:17 | NUR ---
PAIN; up to bsc with one assist. Had a bm. Still c/o burning in her back. Vistaril given.
[2016-05-19] MEDS: 0.9% Sodium Chloride 1,000 ML IV SCH (02:18)
[2016-05-19 05:58] VITALS: BP 107/67; PULSE 70; RESP 18; O2SAT 91
[2016-05-19 06:21] VITALS: PULSE 90
[2016-05-19 09:05] LABS: BASOPHILS % (AUTO) 0.1 % (0-3); EOSINOPHILS % (AUTO) 1.7 % (0-5); MONOCYTES % (AUTO) 9.9 % (4-12); Mean Corpuscular Hemoglobin 33.3 pg (27.0-35.0); Mean Corpuscular Volume 98.5 fL (81-100); NEUTROPHILS % (AUTO) 74.6 % (40-74); Platelet Count 233 bil/L (150-400)
[2016-05-19] MEDS: Pantoprazole 40 mg ER24 Tablet PO SCH (09:28)
[2016-05-19 10:06] VITALS: PULSE 80
[2016-05-19 10:16] VITALS: BP 91/57; PULSE 79; RESP 16; O2SAT 97
[2016-05-19] MEDS: Lactated Ringer's 1,000 ML IV SCH (11:08)
--- NOTE | 2016-05-19 12:30 | PCM.PNORTH ---
Subjective Date of Service: May 19, 2016 Visit Information: Reason for Visit Left Hip Arthritis Surgery/Surgery Date L RAJIV 05/16/16 Post-Op Day # 3 Date of Admission: May 16, 2016 at 16:43 Hospital Day # Subjective Patient states her hip is causing her very little pain. She states her back pain has moved more into her neck and she has had pain there throughout the day and night that has caused her to not sleep well. Patient states she feels better after PT. Postop General: No Complaints, No Shortness of Breath, No Chest Pain, Good Appetite Pain Management: PO Objective Exam Objective Sitting up at bedside Vital Signs and I/O Vital Sign - Last Date Time Temp Pulse Resp B/P Pulse Ox O2 Delivery O2 Flow Rate FiO2 05/19/16 11:06 Room Air 05/19/16 10:16 36.6 79 16 91/57 97 05/17/16 05:29 2.00 Intake and Output 05/18/16 05/18/16 05/19/16 Cumulative From/Thru 15:00 23:00 07:00 05/15/16 09:27 - 05/19/16 06:12 Intake Total 820 ml 500 ml 6444 ml Output Total 1350 ml 900 ml 5250 ml Balance -530 ml -400 ml 1194 ml Intake Oral 820 ml 500 ml 3840 ml IV Total 2604 ml Output Urine Total 1350 ml 450 ml 4700 ml Urine/Stool Mix 450 ml 450 ml Estimated Blood Loss 100 ml # Voids 3 # Bowel Movements 1 2 3 Lab & Micro Results Laboratory Tests Test 05/19/16 08:47 White Blood Count 8.2th/mm3 (3.8-10.1) Red Blood Count 3.24mil/mm3 (3.90-5.20) Hemoglobin 10.8g/dL (12.0-15.6) Hematocrit 31.9% (35.0-46.0) Mean Corpuscular Volume 98.5fL (81-100) Mean Corpuscular Hemoglobin 33.3pg (27.0-35.0) Mean Corpuscular Hemoglobin Concent 33.9% (32.0-37.0) Red Cell Distribution Width 14.6% (12.3-15.4) Platelet Count 233bil/L (150-400) Neutrophils (%) (Auto) 74.6% (40-74) Lymphocytes (%) (Auto) 13.3% (14-46) Monocytes (%) (Auto) 9.9% (4-12) Eosinophils (%) (Auto) 1.7% (0-5) Basophils (%) (Auto) 0.1% (0-3) Sodium Level 132mEq/L (134-144) Potassium Level 3.3mEq/L (3.5-5.2) Chloride Level 95mEq/L (97-108) Carbon Dioxide Level 27mmol/L (18-29) Blood Urea Nitrogen 11mg/dL (8-27) Creatinine 0.49mg/dL (0.57-1.00) Estimat Glomerular Filtration Rate 176mL/min (>59) Glucose Level 110mg/dL (60-99) Calcium Level 8.1mg/dL (8.5-10.1) Magnesium Level 2.0mg/dL (1.6-2.6) Total Bilirubin 0.8mg/dL (0.0-1.2) Aspartate Amino Transf (AST/SGOT) 22U/L (0-50) Alanine Aminotransferase (ALT/SGPT) 10U/L (0-32) Alkaline Phosphatase 69U/L (25-165) Total Protein 5.6g/dL (6.4-8.4) Albumin 2.9g/dL (3.4-5.0) Microbiology 05/16/16 Urine Culture - Final, Complete No growth (<1,000 organisms/mL) Result Diagram: 05/19/16 0847 05/19/16 0847 General Appearance: Alert, Oriented X3, Cooperative, No Acute Distress Extremities: Distal Pulses Palpable, No Compartment Syndrom Noted Postop Sensory Motor: Distal Motor Intact, Movement in Toes, Distal Sensation Intact, NVI Distally SURGICAL WOUND : Wound Location/Description Island dressings clean, dry and intact Incision General Appearance: No Direct Observation Activity: Activity per PT, Ambulate with PT (weightbearing as tolerated on the left lower extremity with front wheeled walker.) Assessment & Plan Impression POD #3 left total hip arthroplasty Problems: Plan Weightbearing: Weightbearing as tolerated with wheeled walker DVT prophylaxis: Aspirin 81 mg twice a day 6 weeks Physical therapy for transfers, progressive ambulation, strengthening Wound care: Keep incision covered for comfort to avoid clothing from rubbing. Wear compression stockings bilaterally. Shower instructions: May shower with dressing covered for one week. After one week, patient may remove dressing and shower with incision uncovered. Do not soak, do not submerge. Pat dry. Analgesia: Percocet 5/325 for pain. Vistaril 25 mg for discomfort and spasms. Discharge plan: Discharge home today after afternoon PT. Start outpatient physical therapy next week. Follow-up plan: In 2 weeks at [facility] with MAKEDA for wound check and at [address] Santoro with x-rays VTE Prophylaxis: Sub-Q Enoxaparin (Lovenox 40 mg subcutaneous daily 10 days postop with transition to ASA 81 mg twice a day 4 weeks postop for total of 6 weeks postoperative DVT prophylaxis.), SCDs (bilateral SCDs.), RANDY Hose ( bilateral thigh-high RANDY hose will be ordered today.) Resuscitation Status: CPR: Attempt Resuscitation Carol Johnson PA-C May 19, 2016 12:30
--- NOTE | 2016-05-19 12:39 | PCM.DIORTH ---
Ortho Discharge Instruction Date of Service: May 19, 2016 Dates of Hospitalization Date of Hospital Admission May 16, 2016 at 16:43 Providers Admitting Physician: Luis Santoro MD Primary Care Physician: Eula Alva MD Attending Physician: Luis Santoro MD Diet Discharge Diet: No restrictions Activity Discharge Activity-General: Try not to overdue, Be up and about, Ice incision 3 -5 time/day for 20min Left Lower Extremity: Weight Bearing as tolerated Discharge Assist Device: Front Wheeled Walker Dressing and Incisional Care Discharge Dressing Care: Allow Steri Stripes to fall off Discharge Hygiene: DO NOT soak incision under water, NO bathtub, hot tub or whirlpool Additional Instructions Discharge Instructions Weightbearing: Weightbearing as tolerated with wheeled walker DVT prophylaxis: Lovenox 40mg SQ once a day for 2 weeks followed by Aspirin 81 mg twice a day for 4 weeks, for a total of 6 weeks. Wound care: Keep incision covered for comfort to avoid clothing from rubbing the incision. Wear compression stockings bilaterally. Shower instructions: May shower with dressing covered for one week. After one week, patient may remove dressing and shower with incision uncovered. Do not soak, do not submerge. Pat dry. Analgesia: Percocet 5/325 for pain. Vistaril 25 mg for discomfort and spasms. Discharge plan: Discharge home today after afternoon PT. Start outpatient physical therapy next week. Follow-up plan: In 2 weeks at [facility] with MAKEDA for wound check and at [address] Santoro with x-rays Carol Johnson PA-C May 19, 2016 12:36
[2016-05-19] MEDS ORDERED: HYDR-3797 PO (12:42)
[2016-05-19] MEDS ORDERED: ENOX40DI8 SUBQ (12:42)
[2016-05-19] MEDS ORDERED: OXYC1TAB24 PO (12:42)
--- NOTE | 2016-05-19 12:50 | PCM.DC.ORT ---
Discharge Summary Date of Service: May 19, 2016 Date of Hospital Admission: May 16, 2016 at 16:43 Date of Surgery: May 16, 2016 Date of Discharge: May 19, 2016 Reason for Hospitalization: Left hip osteoarthritis Procedures Performed: Left hip arthroplasty Hospital Course: The patient was admitted to the hospital on 05/16/2016 and underwent the above procedure. Antibiotic prophylaxis consisting of Ancef and vancomycin. The surgeon was Dr. Santoro. A Nicole was placed perioperatively. Patient tolerated the procedure well and was transferred to recovery room in stable condition. Nicole was discontinued on postop day 1. Patient had physical therapy to work on ambulation and transfers. Weightbearing as tolerated with walker. Pain was managed with Dilaudid, Percocet, Vistaril, Toradol. DVT prophylaxis: Lovenox 40mg SQ QD for 2 weeks and aspirin 81 mg PO BID for 4 weeks and SCDs. Hospital course was complicated with a fib and patient will follow up with cardiology. Patient was able to perform adequately enough to be discharged home on postop day 3. Follow-up: at [facility] 2 weeks postop for wound check and at [address] Santoro with x-ray. Diagnosis at Time of Discharge Status post left hip arthroplasty Problems: Disposition: Stable, discharged to home Discharge Instructions: Weightbearing: Weightbearing as tolerated with wheeled walker DVT prophylaxis: Lovenox 40mg SQ once a day for 2 weeks followed by Aspirin 81 mg twice a day for 4 weeks, for a total of 6 weeks. Wound care: Keep incision covered for comfort to avoid clothing from rubbing the incision. Wear compression stockings bilaterally. Shower instructions: May shower with dressing covered for one week. After one week, patient may remove dressing and shower with incision uncovered. Do not soak, do not submerge. Pat dry. Analgesia: Percocet 5/325 for pain. Vistaril 25 mg for discomfort and spasms. Discharge plan: Discharge home today after afternoon PT. Start outpatient physical therapy next week. Follow-up plan: In 2 weeks at [facility] with PA for wound check and at [address] Santoro with x-rays Calcium Carbonate/Vitamin D3 (Calcium + Vitamin D Tablet) 1 Each Tablet 2 EACH PO DAILY Diclofenac ER (Diclofenac ER) 75 Mg Tablet 75 MG PO DAILY Enoxaparin Sodium (Enoxaparin Sodium) 40 Mg/0.4 Ml Syringe 40 MG SUBQ DAILY@13 Hydrocodone-Acetaminophen 5-325 mg (Hydrocodone-Acetaminophen 5-325 mg) 1 Each Tablet 1 TABLET PO Q6H PRN PRN For Pain Hydroxyzine Pamoate (HydrOXYzine Pamoate) 25 Mg Capsule 1 MG PO Q4H PRN PRN For Restlessness Magnesium Oxide (Magnesium) 400 Mg Capsule 400 MG PO DAILY Multivitamin (Multi Vitamin Daily) 1 Each Tablet 1 EACH PO DAILY oxyCODONE-Acetaminophen 5-325 mg (oxyCODONE-Acetaminophen 5-325 mg) 1 Each Tablet 1-2 TAB PO Q3H PRN PRN For Severe Pain Carol Johnson PA-C May 19, 2016 12:50
--- NOTE | 2016-05-19 14:09 | NUR ---
Activity Pt had increased back pain at beginning of shift, got pt up to chair with k pad and pain lessened. Also obtained one time dose of Ibuprofen. Pt states "this is worse than the hip pain." Pt able to ambulate in room using FWW and work with PT. Pt having multiple BM's, so stool softener held this AM. Pt A&O x 3, BHATIA, VSS. Rx's given to family to take to pharmacy. Plan is for discharge this afternoon after working with PT.
--- NOTE | 2016-05-19 14:35 | NUR ---
Social Work: Readiness for Discharge Data: EMR Reviewed. Pt is on day 3 of hospitalization for left hip arthritis per H&P. Pt may be medically stable later today or tomorrow. PT continues to work with pt and recommend home with daughter and HH services. SW followed up with pt and daughter, Lilly, at bedside to further discuss discharge planning. SW explained recommendation of HH. HH choice list provided. Pt and daughter are in agreement with HH and have no agency preference. SW referred to rotating calendar and made referral to [facility] for RN and PT. Access given. Khris Powell, [facility] liaison, [phone], informed SW that availability would be starting tomorrow. F2F signed. SW will continue to follow. Assessment: Pt to benefit from HH. Plan: Pt to discharge home with daughter via POV. Referral made to [facility] for RN and PT. F2F signed. SW will continue to follow. CHYNA Hunt
--- NOTE | 2016-05-19 14:40 | NUR ---
Choice list provided. Daphnie Wallis MSW
--- NOTE | 2016-05-19 14:43 | NUR ---
Social Work- Discharge. Data: EMR Reviewed. Pt is on day 3 of hospitalization for left hip arthritis per H&P. Pt may be medically stable later today or tomorrow. PT continues to work with pt and recommend home with daughter and HH services. SIMON informed [facility] liaison [phone] of discharge and faxed in F2F and orders for nursing and PT to [phone]. SIMON updated pt and daughter Lilly at bedside. SIMON explained [facility] would be available to start services tomorrow 05/20/16. Pt has all needed DME at home. Pt's daughter to provide transportation home today. Assessment: Pt who would benefit from HH Plan: Pt to discharge home with daughter today via POV. F2F and orders faxed into [facility] for Rn and PT. All updated and agreeable to plan. Daphnie Wallis MSW
--- NOTE | 2016-05-19 16:15 | NUR ---
Discharge Pt discharged at 1600 to private vehicle with family. Pt has discharge instructions and care notes, rx's given to family earlier to take to pharmacy. Pt understands hip precautions and any s/s to call MD or return to hospital. All questions answered. Pt VSS, SRIRAM, A&O x 3. Pain well controlled right now. IV removed intact. Pt has all belongings.
== END 2016-05-19 15:45 | disposition home health service (06) | DRG 470 ==
LOC: SAS 09:12 → OSC 16:43
PROVIDERS: ADMIT Orthopaedic Surgery; ATTEND Orthopaedic Surgery
PROC: 0SRB02Z Replacement of Left Hip Joint with Metal on Polyethylene Synthetic Substitute, Open Approach (ICD-10-PCS; principal; 2016-05-16 11:45)
DX: M16.12 Unilateral primary osteoarthritis, left hip (principal); I48.91 Unspecified atrial fibrillation; T41.45XA Adverse effect of unspecified anesthetic, initial encounter; E02 Subclinical iodine-deficiency hypothyroidism; R03.0 Elevated blood-pressure reading, without diagnosis of hypertension